=== PATIENT | female | born 1955 | race Caucasian/White ===

== ENCOUNTER 2018-01-22 14:54 | Inpatient (IN) | payer MEDICARE, MEDICAID ==
[~2018-01-22] VITALS: Ht 162.6 cm; Wt 65.8 kg
[2018-01-22] MEDS ORDERED: ACETAMINOPHEN 325MG TABLET PO ONE (16:45)
[2018-01-22] MEDS ORDERED: KETOROLAC 30MG/ML VIAL IM ONE (16:45)
[2018-01-22] MEDS ORDERED: HYDROCODONE/ACETAMINOPHEN 5/325MG TABLET PO ONE (17:15)
[2018-01-22 21:26] LABS: BASOPHILS % 0.4 % (0.0-2.0); EOSINOPHILS % 0.1 % (0.0-5.0); HEMATOCRIT. 40.2 % (36.0-48.0); HEMOGLOBIN. 13.9 g/dL (12.0-16.0); LYMPHOCYTES % 17.8 % (20.0-50.0); MEAN PLATELET VOLUME 8.4 fl (7.4-10.4); MONOCYTES % 4.5 % (2.0-8.0); NEUTROPHILS % 77.2 % (40.0-76.0); PLATELET 190 x1000/uL (130-400); RED BLOOD CELL COUNT 4.47 mill/uL (4.2-5.4); RED CELL DISTRIBUTION WIDTH 13.1 % (11.6-14.6)
[2018-01-22 21:28] LABS: CHLORIDE 104 mEq/L (98-107)
[2018-01-22 23:30] VITALS: BP 162/85
[2018-01-22] MEDS ORDERED: BENA20TA3 PO (23:37)
[2018-01-22] MEDS ORDERED: OMEP20CA10 PO (23:37)
[2018-01-23] MEDS ORDERED: DOCUSATE SODIUM 100MG CAPSULE PO PRN
[2018-01-23] MEDS ORDERED: MAGNESIUM/ALUMINUM HYDROXIDE/SIMETHICONE 30ML UDC PO PRN
[2018-01-23] MEDS ORDERED: ACETAMINOPHEN 650MG/20.3ML UDC GT PRN
[2018-01-23] MEDS ORDERED: CLONIDINE 0.1MG TABLET PO PRN
[2018-01-23] MEDS ORDERED: IPRATROPIUM/ALBUTEROL 0.5-3(2.5)MG/3ML NEB INH PRN
[2018-01-23] MEDS ORDERED: ONDANSETRON HCL 4MG/2ML VIAL IV PRN
[2018-01-23] MEDS: MORPHINE SULFATE 4 MG/ML CPJ (NOT FOR IM USE) IV PRN ×2 (00:19→08:50)
[2018-01-23 02:49] LABS: CLARITY URINE CLEAR (CLEAR); COLOR URINE YELLOW (YELLOW); KETONES URINE NEGATIVE (NEGATIVE); LEUKOCYTE ESTERASE URINE TRACE (NEGATIVE); NITRITE URINE NEGATIVE (NEGATIVE); OCCULT BLOOD URINE NEGATIVE (NEGATIVE); PH URINE 8.5 (4.5-8.0); PROTEIN URINE NEGATIVE (NEGATIVE); SPECIFIC GRAVITY URINE 1.013 (1.005-1.030)
[2018-01-23 03:05] LABS: *AMPHETAMINES SCREEN URINE NEGATIVE (NEGATIVE); *BARBITURATES SCREEN URINE NEGATIVE (NEGATIVE); *BENZODIAZEPINES SCREEN URINE NEGATIVE (NEGATIVE); *COCAINE SCREEN URINE NEGATIVE (NEGATIVE); CANNABINOID URINE SCREEN NEGATIVE (NEGATIVE); METHADONE URINE SCREEN NEGATIVE (NEGATIVE); OPIATES URINE SCREEN NEGATIVE (NEGATIVE); PHENCYCLIDINE URINE SCREEN NEGATIVE (NEGATIVE)
[2018-01-23] MEDS: DEXT 5%/0.45% NACL 1000ML 1,000 ML IV SCH ×2 (03:14→23:32)
[2018-01-23] MEDS: HYDROCODONE/ACETAMINOPHEN 5/325MG TABLET PO PRN ×3 (03:21→23:29)
[2018-01-23] MEDS: OMEPRAZOLE 20MG CAPSULE EXTENDED RELEASE PO SCH (06:50)
[2018-01-23 07:16] LABS: BASOPHILS % 0.2 % (0.0-2.0); EOSINOPHILS % 0.1 % (0.0-5.0); HEMATOCRIT. 37.5 % (36.0-48.0); HEMOGLOBIN. 12.9 g/dL (12.0-16.0); LYMPHOCYTES % 17.1 % (20.0-50.0); MEAN CORPUSCULAR HEMOGLOBIN 30.9 pg (28.0-32.0); MEAN PLATELET VOLUME 8.8 fl (7.4-10.4); MONOCYTES % 5.5 % (2.0-8.0); NEUTROPHILS % 77.1 % (40.0-76.0); PLATELET 176 x1000/uL (130-400); RED BLOOD CELL COUNT 4.16 mill/uL (4.2-5.4); RED CELL DISTRIBUTION WIDTH 13.2 % (11.6-14.6)
[2018-01-23 07:51] LABS: CHLORIDE 101 mEq/L (98-107)
[2018-01-23 08:00] VITALS: BP 133/66
[2018-01-23 12:00] VITALS: BP 120/66
[2018-01-23] MEDS ORDERED: MORPHINE SULFATE 4 MG/ML CPJ (NOT FOR IM USE) IV PRN (12:00)
[2018-01-23] MEDS ORDERED: SIMETHICONE 80MG TABLET CHEW PO PRN (12:00)
[2018-01-23 16:00] VITALS: BP 134/70
[2018-01-23 20:00] VITALS: BP 121/65
[2018-01-23] MEDS ORDERED: ZOLPIDEM TARTRATE 5MG TABLET PO PRN (21:00)
[2018-01-24] VITALS: BP 117/72
[2018-01-24 04:00] VITALS: BP 123/56
[2018-01-24] MEDS: HYDROCODONE/ACETAMINOPHEN 5/325MG TABLET PO PRN ×3 (04:51→17:44)
[2018-01-24] MEDS: OMEPRAZOLE 20MG CAPSULE EXTENDED RELEASE PO SCH (06:37)
[2018-01-24 07:29] LABS: BASOPHILS % 0.4 % (0.0-2.0); EOSINOPHILS % 0.8 % (0.0-5.0); HEMATOCRIT. 37.5 % (36.0-48.0); HEMOGLOBIN. 12.8 g/dL (12.0-16.0); LYMPHOCYTES % 37.6 % (20.0-50.0); MEAN CORPUSCULAR HEMOGLOBIN 31.1 pg (28.0-32.0); MEAN PLATELET VOLUME 8.9 fl (7.4-10.4); MONOCYTES % 7.3 % (2.0-8.0); NEUTROPHILS % 53.9 % (40.0-76.0); PLATELET 162 x1000/uL (130-400); RED BLOOD CELL COUNT 4.12 mill/uL (4.2-5.4); RED CELL DISTRIBUTION WIDTH 13.5 % (11.6-14.6)
[2018-01-24 07:54] LABS: CHLORIDE 106 mEq/L (98-107)
[2018-01-24 08:00] VITALS: BP 124/57
[2018-01-24] MEDS: DEXT 5%/0.45% NACL 1000ML 1,000 ML IV SCH (09:57)
[2018-01-24 12:00] VITALS: BP 118/59
[2018-01-24 16:00] VITALS: BP 115/61
[2018-01-24 20:00] VITALS: BP 133/69
[2018-01-25] VITALS (7 sets, daily range): BP systolic 112–139; BP diastolic 52–80
[2018-01-25] MEDS: HYDROCODONE/ACETAMINOPHEN 5/325MG TABLET PO PRN ×3 (01:13→18:18)
[2018-01-25] MEDS: DEXT 5%/0.45% NACL 1000ML 1,000 ML IV SCH (08:54)
[2018-01-25] MEDS: OMEPRAZOLE 20MG CAPSULE EXTENDED RELEASE PO SCH (08:54)
[2018-01-25] MEDS ORDERED: DOCUSATE SODIUM 250MG CAPSULE PO ONE (11:45)
[2018-01-25] MEDS ORDERED: LACTULOSE 20G/30ML UDC PO NR (12:46)
== END 2018-01-25 21:50 | disposition home health service (06) | DRG 563 ==
LOC: ER 15:11 → 6EST 21:18 → EDBEDREQ 21:22 → ENRESERV 21:57
PROVIDERS: ADMIT Family Medicine Adult Medicine; ATTEND Family Medicine Adult Medicine
PROC: 2W3LX1Z Immobilization of Right Lower Extremity using Splint (ICD-10-PCS; principal; 2018-01-22)
DX: S82.091A Other fracture of right patella, initial encounter for closed fracture (principal); I10 Essential (primary) hypertension; M25.461 Effusion, right knee; K21.9 Gastro-esophageal reflux disease without esophagitis; W01.0XXA Fall on same level from slipping, tripping and stumbling without subsequent striking against object, initial encounter; Y93.01 Activity, walking, marching and hiking; Y92.89 Other specified places as the place of occurrence of the external cause; Y99.8 Other external cause status; Z90.49 Acquired absence of other specified parts of digestive tract
CPT/HCPCS: 36415; 71045; 73522; 73562; 80048; 80053; 80305; 81003; 85025; 87086; 93005; 93970; 96372; 97162; 99285; J1885; J2270; J3490; L1830

== ENCOUNTER 2024-10-31 09:59 | Emergency (ER) | payer MEDICARE, MEDICAID ==
[~2024-10-31] VITALS: Ht 162.6 cm; Wt 90.0 kg
[~2024-10-31 09:59] MED LIST: BENA-8 PO; OMEP20CA14 PO
[2024-10-31 10:02] VITALS: O2SAT 99
[2024-10-31] MEDS: SODIUM CHLORIDE 0.9% (SEPSIS BOLUS) IV ONE (10:34)
[2024-10-31 11:11] LABS: CARBON DIOXIDE 21 mEq/L (21-32); CHLORIDE 104 mEq/L (98-107); POTASSIUM 3.8 mEq/L (3.5-5.1); SODIUM 136 mEq/L (136-145)
[2024-10-31 11:12] LABS: CALCIUM 8.9 mg/dL (8.7-10.4)
[2024-10-31 11:15] LABS: HEMATOCRIT. 38.8 % (36.0-48.0); HEMOGLOBIN. 13.3 g/dL (12.0-16.0); MEAN CORPUSCULAR HEMOGLOBIN 31.8 pg (28.0-32.0); MEAN CORPUSCULAR HGB CONC 34.3 g/dL (31.0-37.0); MEAN PLATELET VOLUME 7.6 fl (7.4-10.4); PLATELET 115 x1000/uL (130-400); RED BLOOD CELL COUNT 4.17 mill/uL (4.2-5.4); RED CELL DISTRIBUTION WIDTH 13.6 % (11.6-14.6)
[2024-10-31 11:17] LABS: CREATININE 0.6 mg/dL (0.6-1.0); GLUCOSE 123 mg/dL (70-105); TROPONIN I HIGH SENSITIVITY 4 ng/L (3.0-34); UREA NITROGEN BLOOD 10 mg/dL (9-23)
[2024-10-31 11:18] LABS: ALANINE AMINOTRANSFERASE 46 IU/L (10-49); ASPARTATE AMINOTRANSFERASE 47 IU/L (<34)
[2024-10-31 11:19] LABS: ALBUMIN 4.1 g/dL (3.2-4.8); BILIRUBIN DIRECT 0.6 mg/dL (<=3.0); BILIRUBIN TOTAL 1.6 mg/dL (0.1-1.0); PROTEIN TOTAL 6.6 g/dL (6.0-8.3)
[2024-10-31 11:23] LABS: DIFFERENTIAL COMMENT 1; WHITE BLOOD COUNT 1.1 x1000/uL (4.5-11.0)
[2024-10-31] MEDS: MORPHINE SULFATE 4 MG/ML INJ (FOR IV/IM USE) IV STA (12:14)
[2024-10-31] MEDS: ONDANSETRON HCL 4MG/2ML INJ IV STA (12:14)
[2024-10-31] MEDS ORDERED: CLIN-194 MT (12:44)
[2024-10-31] MEDS ORDERED: T3 PO (12:44)
[2024-10-31 12:59] LABS: NUCLEATED RED BLOOD CELLS 1 /100 WBC
[2024-10-31 13:00] LABS: PLATELET ESTIMATE DECREASED
[2024-10-31 13:05] VITALS: BP 125/55; PULSE 106; RESP 17; TEMP 38.28084; O2SAT 98
== END 2024-10-31 13:24 | disposition home or self-care (01) ==
LOC: ER 10:36 → CANBEDREQ 12:46 → ER 13:24
DX: B34.9 Viral infection, unspecified (principal); R65.10 Systemic inflammatory response syndrome (SIRS) of non-infectious origin without acute organ dysfunction; D72.819 Decreased white blood cell count, unspecified; I10 Essential (primary) hypertension; Z79.899 Other long term (current) drug therapy
CPT/HCPCS: 99285; 96374; 71045; 96361; 96375; 80076; 80048; 83605; 85025; 87040; 84484; 36415; 84145; 93005; J2405; J2270; J7030; A4606